=== PATIENT | female | born 1960 | race Caucasian/White ===

== ENCOUNTER 2023-01-02 09:15 | Emergency (ER) | payer MEDICARE, BC ==
[~2023-01-02] VITALS: Ht 160 cm; Wt 100.0 kg
[2023-01-02 09:18] VITALS: BP 152/79
--- NOTE | 2023-01-02 10:55 | NUR ---
TELERAD CALLED REGARDING XRAY REPORT.
[2023-01-02] MEDS ORDERED: HYDR-3973 PO (11:19)
== END 2023-01-02 11:26 | disposition home or self-care (01) ==
LOC: ER 09:17
DX: M25.562 Pain in left knee (principal); Z79.899 Other long term (current) drug therapy; Z88.8 Allergy status to other drugs, medicaments and biological substances
CPT/HCPCS: 73564; 99284